=== PATIENT | male | born 1965 | race Asian ===

== ENCOUNTER 2016-09-06 07:59 | Outpatient (CLI) | payer OTHER | END 2016-09-06 08:00 | disposition home or self-care (01) | LOC: NC 07:59 | PROVIDERS: ATTEND Family Medicine | DX: R73.09 Other abnormal glucose (principal); Z71.3 Dietary counseling and surveillance; Z68.28 Body mass index [BMI] 28.0-28.9, adult ==

== ENCOUNTER 2016-09-26 06:56 | Day surgery (SDC) | payer OTHER ==
[2016-09-26] MEDS ORDERED: IV START KIT ONE (06:57)
[2016-09-26] MEDS ORDERED: LACTATED RINGERS 1,000 ML ONE (06:57)
[2016-09-26] MEDS ORDERED: MIDAZOLAM HCL 5 MG/5 ML VIAL ONE (07:01)
[2016-09-26] MEDS ORDERED: FENTANYL 250 MCG/5 ML AMP IV PRN (07:02)
[2016-09-26] MEDS ORDERED: MIDAZOLAM HCL 5 MG/5 ML VIAL IV PRN (07:02)
[2016-09-26] MEDS ORDERED: FENTANYL 5 ML ONE (07:02)
[2016-09-26] MEDS ORDERED: LACTATED RINGERS 1,000 ML IV SCH (07:15)
== END 2016-09-26 08:43 | disposition home or self-care (01) ==
LOC: SDC 06:56
PROVIDERS: ATTEND Family Medicine
PROC: 0DJD8ZZ Inspection of Lower Intestinal Tract, Via Natural or Artificial Opening Endoscopic (ICD-10-PCS; principal; 2016-09-26)
DX: Z12.11 Encounter for screening for malignant neoplasm of colon (principal); Z80.8 Family history of malignant neoplasm of other organs or systems; Z80.3 Family history of malignant neoplasm of breast
CPT/HCPCS: 45378; J3010; J2250; J7120